=== PATIENT | male | born 1955 | race Caucasian/White ===

== ENCOUNTER → 2016-06-30 | Outpatient (CLI) | payer OTHER ==
[2016-07-03 00:07] LABS: PSA TOTAL 3.4 ng/mL (0.0-4.0)
== END ==
LOC: M SMT 11:10
PROVIDERS: ATTEND Urology
DX: N40.0 Benign prostatic hyperplasia without lower urinary tract symptoms (principal)

== ENCOUNTER → 2016-09-18 | Outpatient (CLI) | payer OTHER ==
[2016-09-18 18:04] LABS: ALBUMIN 4.2 GM/DL (3.2-5.2); ALKALINE PHOSPHATASE 40 U/L (45-117); ALT/SGPT 50 U/L (12-78); ANION GAP 5 MEQ/L (8-16); AST/SGOT 29 U/L (15-37); BILIRUBIN,TOTAL 1.9 MG/DL (0.2-1.0); BLOOD UREA NITROGEN 14 MG/DL (7-18); CALCIUM LEVEL 9.5 MG/DL (8.8-10.2); CARBON DIOXIDE LEVEL 30 MEQ/L (21-32); CHLORIDE LEVEL 105 MEQ/L (98-107); CHOLESTEROL LEVEL 157 MG/DL (<200); CREATININE FOR GFR 0.93 MG/DL (0.70-1.30); GLOMERULAR FILTRATION RATE > 60.0 (>49); GLUCOSE, FASTING 88 MG/DL (80-110); POTASSIUM SERUM 4.6 MEQ/L (3.5-5.1); SODIUM LEVEL 140 MEQ/L (136-145); TOTAL PROTEIN 7.2 GM/DL (6.4-8.2); TRIGLYCERIDES LEVEL 112 MG/DL (<150)
== END ==
LOC: M SMT 10:21
PROVIDERS: ATTEND Emergency Medicine
DX: I10 Essential (primary) hypertension (principal); E78.2 Mixed hyperlipidemia

== ENCOUNTER → 2017-05-05 | Outpatient (CLI) | payer OTHER ==
[2017-05-06 14:13] LABS: PSA % FREE 14.2 % (.); PSA FREE 1.22 ng/mL; PSA TOTAL 8.6 ng/mL (0.0-4.0)
== END ==
LOC: M SMT 10:33
DX: N40.0 Benign prostatic hyperplasia without lower urinary tract symptoms (principal)
CPT/HCPCS: 84154

== ENCOUNTER → 2017-05-11 | Outpatient (REF) | payer OTHER ==
[2017-05-11 19:22] LABS: APPEARANCE, URINE CLEAR (CLEAR); BACTERIA, URINE AUTO NEGATIVE (NEGATIVE); BILIRUBIN, URINE AUTO NEGATIVE (NEGATIVE); BLOOD, URINE BLOOD 2+ (NEGATIVE); COLOR, URINE STRAW (YELLOW); GLUCOSE, URINE (UA) AUTO NEGATIVE (NEGATIVE); KETONE, URINE AUTO NEGATIVE (NEGATIVE); LEUKOCYTE ESTERASE, URINE AUTO NEGATIVE (NEGATIVE); MUCUS, URINE SMALL (NEGATIVE); NITRITE, URINE AUTO NEGATIVE (NEGATIVE); PROTEIN, URINE AUTO NEGATIVE (NEGATIVE); RBC, URINE AUTO 3 /HPF (0-3); SPECIFIC GRAVITY URINE AUTO 1.003 (1.002-1.035); SQUAMOUS EPITHELIAL CELL UR AU 0 /HPF (0-6); UROBILINOGEN, URINE AUTO 0.2 mg/dL (0.0-2.0); WBC, URINE AUTO 0 /HPF (0-3)
== END ==
LOC: M SMT 17:38
DX: R31.0 Gross hematuria (principal); L97.423 Non-pressure chronic ulcer of left heel and midfoot with necrosis of muscle; L97.822 Non-pressure chronic ulcer of other part of left lower leg with fat layer exposed

== ENCOUNTER → 2017-05-18 | Outpatient (CLI) | payer OTHER ==
[2017-05-18 13:19] LABS: HEMATOCRIT 47.7 % (42.0-52.0); HEMOGLOBIN 15.6 g/dl (14.0-18.0); MEAN CORPUSCULAR HEMOGLOBIN 30.5 pg (27.0-33.0); MEAN CORPUSCULAR HGB CONC 32.7 g/dl (32.0-36.5); MEAN CORPUSCULAR VOLUME 93.2 fl (80.0-96.0); PLATELET COUNT, AUTOMATED 195 10^3/uL (150-450); RED BLOOD COUNT 5.12 10^6/uL (4.30-6.10); RED CELL DISTRIBUTION WIDTH 13.2 % (11.5-14.5); WHITE BLOOD COUNT 7.8 10^3/uL (4.0-10.0)
[2017-05-18 13:31] LABS: ANION GAP 6 MEQ/L (8-16); BLOOD UREA NITROGEN 15 MG/DL (7-18); CALCIUM LEVEL 9.4 MG/DL (8.8-10.2); CARBON DIOXIDE LEVEL 31 MEQ/L (21-32); CHLORIDE LEVEL 104 MEQ/L (98-107); CREATININE FOR GFR 0.92 MG/DL (0.70-1.30); GLOMERULAR FILTRATION RATE > 60.0 (>49); GLUCOSE, FASTING 90 MG/DL (70-100); POTASSIUM SERUM 4.3 MEQ/L (3.5-5.1); SODIUM LEVEL 141 MEQ/L (136-145)
[2017-05-18 13:35] LABS: PARTIAL THROMBOPLASTIN TIME 27.6 SECONDS (26.8-37.9); PROTHROMBIN TIME 13.3 SECONDS (12.4-14.5)
== END ==
LOC: M SMT 08:15
DX: Z01.818 Encounter for other preprocedural examination (principal); N40.1 Benign prostatic hyperplasia with lower urinary tract symptoms
CPT/HCPCS: 80048

== ENCOUNTER 2017-05-25 06:02 | Day surgery (SDC) | payer OTHER ==
[2017-05-25] MEDS ORDERED: LIDOCAINE 1% MDV 20ML VIAL SQ (06:15)
[2017-05-25] MEDS: LR 1,000 ML IV (06:55)
[2017-05-25] MEDS ORDERED: MIDAZOLAM INJ 2 MG/2 ML VIAL (J2250) As Ordered (07:56)
[2017-05-25] MEDS ORDERED: fentaNYL 250 MCG/5 ML INJECTION (J3010) As Ordered (07:56)
[2017-05-25] MEDS ORDERED: PROPOFOL 200 MG/20 ML VIAL As Ordered ×2 (07:57→09:39)
[2017-05-25] MEDS ORDERED: LIDOCAINE 2% INJ 100 MG/5 ML SDV (FOR ANES.) As Ordered (07:58)
[2017-05-25] MEDS ORDERED: ONDANSETRON 4MG/2ML VIAL (J2405) As Ordered (08:16)
[2017-05-25] MEDS ORDERED: dexameTHASONE 4 MG/ML 1ML VIAL (J1100) As Ordered (08:16)
[2017-05-25] MEDS ORDERED: ePHEDrine INJ 50 MG/ML VIAL As Ordered (08:21)
[2017-05-25] MEDS ORDERED: FUROSEMIDE 100 MG/10 ML VIAL (J1940) As Ordered (09:16)
[2017-05-25] MEDS ORDERED: ACETAMINOPHEN TAB 650MG DOSE (2X325MG) PO (10:15)
[2017-05-25] MEDS ORDERED: MORPHINE 10 MG/ML 1ML VIAL (J2270) IV (10:30)
[2017-05-25] MEDS ORDERED: ONDANSETRON 4MG/2ML VIAL (J2405) IV (10:30)
[2017-05-25] MEDS ORDERED: METOCLOPRAMIDE INJ 10MG/2ML VIAL (J2765) IV (10:30)
[2017-05-25] MEDS ORDERED: LR 1,000 ML IV (10:30)
[2017-05-25] MEDS ORDERED: fentaNYL 100 MCG/2 ML INJECTION (J3010) IV (10:30)
[2017-05-25] MEDS: PERCOCET 5MG/325MG TAB PO (12:32)
== END 2017-05-25 13:15 | disposition home or self-care (01) ==
LOC: M SDC 06:02
DX: N40.1 Benign prostatic hyperplasia with lower urinary tract symptoms (principal); R97.20 Elevated prostate specific antigen [PSA]; I10 Essential (primary) hypertension; E78.2 Mixed hyperlipidemia; Z87.891 Personal history of nicotine dependence; Z79.899 Other long term (current) drug therapy; Z79.82 Long term (current) use of aspirin
CPT/HCPCS: 52601

== ENCOUNTER → 2017-08-12 | Outpatient (CLI) | payer OTHER ==
[2017-08-12 14:09] LABS: ALBUMIN 4.5 GM/DL (3.2-5.2); ALBUMIN/GLOBULIN RATIO 1.73 (1.00-1.93); ALKALINE PHOSPHATASE 42 U/L (45-117); ALT/SGPT 44 U/L (12-78); ANION GAP 4 MEQ/L (8-16); AST/SGOT 36 U/L (7-37); BILIRUBIN,TOTAL 2.1 MG/DL (0.2-1.0); BLOOD UREA NITROGEN 11 MG/DL (7-18); CALCIUM LEVEL 8.9 MG/DL (8.8-10.2); CARBON DIOXIDE LEVEL 31 MEQ/L (21-32); CHLORIDE LEVEL 108 MEQ/L (98-107); CHOLESTEROL LEVEL 147 MG/DL (<200); CHOLESTEROL RISK RATIO 2.296 (<5); CREATININE FOR GFR 0.94 MG/DL (0.70-1.30); GLOMERULAR FILTRATION RATE > 60.0 (>49); GLUCOSE, FASTING 95 MG/DL (70-100); HDL CHOLESTEROL 64 MG/DL (>40); LDL CHOLESTEROL 67.8 MG/DL (<100); NON-HDL-C 83 MG/DL; POTASSIUM SERUM 4.6 MEQ/L (3.5-5.1); SODIUM LEVEL 143 MEQ/L (136-145); TOTAL PROTEIN 7.1 GM/DL (6.4-8.2); TRIGLYCERIDES LEVEL 76 MG/DL (<150)
== END ==
LOC: M SMT 10:41
DX: I10 Essential (primary) hypertension (principal); E78.2 Mixed hyperlipidemia

== ENCOUNTER → 2017-12-16 | Outpatient (CLI) | payer OTHER ==
[2017-12-18 00:06] LABS: PSA % FREE 20.2 % (.); PSA FREE 0.95 ng/mL; PSA TOTAL 4.7 ng/mL (0.0-4.0)
== END ==
LOC: M SMT 09:44
DX: R97.20 Elevated prostate specific antigen [PSA] (principal)

== ENCOUNTER → 2018-05-06 | Outpatient (REF) | payer OTHER ==
[~2018-05-06] MED LIST: ASPI81TA85 PO; CENTTAB PO; EZET10TA PO; FLOM0.4C39 PO; SIMV40TA2 PO
[2018-05-06 13:51] LABS: HEMOGLOBIN A1c 5.8 %
== END ==
LOC: M SFHCPLAZ 10:01
PROVIDERS: ATTEND Family Medicine
DX: R73.01 Impaired fasting glucose (principal)
CPT/HCPCS: 36415; 83036; 90471; 90732; 93005; G0463

== ENCOUNTER → 2018-12-22 | Outpatient (CLI) | payer OTHER ==
[~2018-12-22] MED LIST changes: -EZET10TA PO; +EZET10TA21 PO
[2018-12-23 14:07] LABS: PSA % FREE 18.2 % (.); PSA FREE 0.91 ng/mL
== END ==
LOC: M SMT 09:03
PROVIDERS: ATTEND Urology
DX: R97.20 Elevated prostate specific antigen [PSA] (principal)

== ENCOUNTER → 2019-05-13 | Outpatient (REF) | payer OTHER ==
[~2019-05-13] MED LIST changes: -SIMV40TA2 PO; +SIMV40TA20 PO
[2019-05-13 11:23] LABS: ALBUMIN 4.5 GM/DL (3.2-5.2); ALT/SGPT 52 U/L (12-78); BLOOD UREA NITROGEN 15 MG/DL (7-18); CALCIUM LEVEL 9.3 MG/DL (8.8-10.2); CARBON DIOXIDE LEVEL 27 MEQ/L (21-32); CHLORIDE LEVEL 108 MEQ/L (98-107); CHOLESTEROL LEVEL 140 MG/DL (<200); CHOLESTEROL RISK RATIO 2.153 (<5); CREATININE FOR GFR 0.87 MG/DL (0.70-1.30); GLOMERULAR FILTRATION RATE > 60.0 (>49); GLUCOSE, FASTING 96 MG/DL (70-100); HDL CHOLESTEROL 65 MG/DL (>40); LDL CHOLESTEROL 64 MG/DL (<100); NON-HDL-C 75 MG/DL; POTASSIUM SERUM 4.5 MEQ/L (3.5-5.1); SODIUM LEVEL 140 MEQ/L (136-145); TOTAL PROTEIN 7.3 GM/DL (6.4-8.2); TRIGLYCERIDES LEVEL 57 MG/DL (<150)
== END ==
LOC: M SFHCPLAZ 09:19
PROVIDERS: ATTEND Family Medicine
DX: I10 Essential (primary) hypertension (principal); E78.2 Mixed hyperlipidemia; R73.03 Prediabetes
CPT/HCPCS: 36415; 80053; 80061; 83036; G0463

== ENCOUNTER → 2019-05-25 | Outpatient (REF) | payer OTHER | LOC: M SFHCWAGY 13:00 | PROVIDERS: ATTEND Family Medicine | DX: D49.2 Neoplasm of unspecified behavior of bone, soft tissue, and skin (principal) ==

== ENCOUNTER → 2019-11-16 | Outpatient (CLI) | payer OTHER ==
[~2019-11-16] MED LIST changes: -ASPI81TA85 PO; +ASPI81TA86 PO
[2019-11-16 15:58] LABS: ALBUMIN 4.4 GM/DL (3.2-5.2); ALT/SGPT 47 U/L (12-78); BILIRUBIN,TOTAL 1.9 MG/DL (0.2-1.0); BLOOD UREA NITROGEN 11 MG/DL (7-18); CALCIUM LEVEL 9.9 MG/DL (8.8-10.2); CARBON DIOXIDE LEVEL 30 MEQ/L (21-32); CHLORIDE LEVEL 108 MEQ/L (98-107); CREATININE FOR GFR 0.84 MG/DL (0.70-1.30); GLOMERULAR FILTRATION RATE > 60.0 (>49); GLUCOSE, FASTING 94 MG/DL (70-100); POTASSIUM SERUM 4.7 MEQ/L (3.5-5.1); SODIUM LEVEL 142 MEQ/L (136-145); THYROID STIMULATING HORMONE 0.615 uIU/ML (0.358-3.740); TOTAL PROTEIN 7.3 GM/DL (6.4-8.2)
[2019-11-16 16:00] LABS: VITAMIN B12 LEVEL 630 PG/ML (247-911)
== END ==
LOC: M PLALAB 13:49
PROVIDERS: ATTEND Family Medicine
DX: I10 Essential (primary) hypertension (principal); R41.3 Other amnesia; N40.1 Benign prostatic hyperplasia with lower urinary tract symptoms

== ENCOUNTER → 2019-11-24 | Outpatient (CLI) | payer OTHER ==
[~2019-11-24] MED LIST changes: +PROHANCE 279.3MG/ML 15ML VIAL As Ordered ONE; +PROHANCE 279.3MG/ML 5ML VIAL As Ordered ONE
--- NOTE | 2019-11-24 14:56 | REPVR ---
PROCEDURE INFORMATION: Exam: MR Head Without and With Contrast Exam date and time: 11/24/2019 2:36 PM Age: 64 years old Clinical indication: Altered mental status/memory loss; Age related cognitive decline; Additional info: Memory decline fm h/o brain tumor TECHNIQUE: Imaging protocol: MR of the head without and with intravenous contrast. Contrast material: PROHANCE; Contrast volume: 18 ml; Contrast route: INTRAVENOUS (IV); COMPARISON: No relevant prior studies available. FINDINGS: Brain: There is no abnormal diffusion weighted signal intensity to suggest an acute ischemic event. There is mild atrophy and normal chronic white matter microangiopathic changes. Ventricles: There is a normal-variant cavum septi pellucidi and cavum vergae. There is no dilatation of the ventricles with attention to the temporal horns on coronal images. Bones/joints: Unremarkable. Sinuses: Normal as visualized. No acute sinusitis. Mastoid air cells: Normal as visualized. No mastoid effusion. Orbits: Unremarkable. Soft tissues: Unremarkable. Other findings: There are no regions of abnormal enhancement. IMPRESSION: 1. There are no regions of abnormal enhancement. 2. There is no dilatation of the ventricles with attention to the temporal horns on coronal images. Electronically signed by: Bhupinder Vincent On 11/24/2019 14:56:44 PM
== END ==
LOC: M RAD 13:15
PROVIDERS: ATTEND Family Medicine
DX: R41.81 Age-related cognitive decline (principal); Z80.8 Family history of malignant neoplasm of other organs or systems
CPT/HCPCS: 70553; A9576

== ENCOUNTER → 2020-01-30 | Outpatient (REF) | payer OTHER ==
[~2020-01-30] MED LIST changes: -PROHANCE 279.3MG/ML 15ML VIAL As Ordered ONE; -PROHANCE 279.3MG/ML 5ML VIAL As Ordered ONE
== END ==
LOC: M LABSMT 12:22
PROVIDERS: ATTEND Nurse Practitioner Women's Health
DX: R97.20 Elevated prostate specific antigen [PSA] (principal)

== ENCOUNTER → 2020-06-21 | Outpatient (REF) | payer OTHER ==
[2020-06-21 14:07] LABS: BLOOD UREA NITROGEN 13 MG/DL (7-18); CALCIUM LEVEL 9.4 MG/DL (8.8-10.2); CARBON DIOXIDE LEVEL 32 MEQ/L (21-32); CHLORIDE LEVEL 105 MEQ/L (98-107); CHOLESTEROL LEVEL 139 MG/DL (<200); CHOLESTEROL RISK RATIO 2.396 (<5); CREATININE FOR GFR 0.78 MG/DL (0.70-1.30); GLOMERULAR FILTRATION RATE > 60.0 (>49); GLUCOSE, FASTING 97 MG/DL (70-100); HDL CHOLESTEROL 58 MG/DL (>40); LDL CHOLESTEROL 59 MG/DL (<100); NON-HDL-C 81 MG/DL; POTASSIUM SERUM 4.3 MEQ/L (3.5-5.1); SODIUM LEVEL 139 MEQ/L (136-145); TRIGLYCERIDES LEVEL 110 MG/DL (<150)
[2020-06-21 16:07] LABS: HEMOGLOBIN A1c 5.7 %
== END ==
LOC: M SFHCPLAZ 09:00
PROVIDERS: ATTEND Family Medicine
DX: R73.03 Prediabetes (principal); E78.2 Mixed hyperlipidemia; I10 Essential (primary) hypertension
CPT/HCPCS: 36415; 80048; 80061; 83036; G0463

== ENCOUNTER → 2020-08-01 | Outpatient (REF) | payer OTHER ==
[2020-08-02 19:07] LABS: PSA % FREE 17.7 % (.); PSA FREE 1.08 ng/mL; PSA TOTAL 6.1 ng/mL (0.0-4.0)
== END ==
LOC: M PLALAB 12:45
PROVIDERS: ATTEND Urology
DX: R97.20 Elevated prostate specific antigen [PSA] (principal)

== ENCOUNTER → 2020-10-18 | Outpatient (CLI) | payer MEDICARE, OTHER ==
[2020-10-18 12:38] LABS: FOLATE 23.4 NG/ML; FREE T4 0.79 NG/DL (0.76-1.46); FREE THYROXINE INDEX 2.9 % (1.4-3.8); RHEUMATOID FACTOR QUANT < 10.0 IU/ML (<15.0); T UPTAKE 34 % (33-40); THYROXINE (T4) 8.5 UG/DL (4.5-12.0); TOTAL PROTEIN 6.8 GM/DL (6.4-8.2); VITAMIN B12 LEVEL 552 PG/ML
[2020-10-19 10:52] LABS: ALBUMIN 4.35 GM/DL (3.29-5.55); ALPHA-1-GLOBULIN % 4.4 % (2.9-4.9); ALPHA-2-GLOBULINS 0.69 GM/DL (0.42-0.99); ALPHA-2-GLOBULINS % 10.2 % (7.1-11.8); BETA-1-GLOBULINS 0.45 GM/DL (0.28-0.60); BETA-1-GLOBULINS % 6.6 % (4.7-7.2); BETA-2-GLOBULINS 0.33 GM/DL (0.19-0.55); BETA-2-GLOBULINS % 4.9 % (3.2-6.5); GAMMA GLOBULIN % 9.9 % (11.1-18.8); GAMMA GLOBULINS 0.67 GM/DL (0.65-1.58)
== END ==
LOC: M PLALAB 08:20
PROVIDERS: ATTEND Psychiatry & Neurology Neurology
DX: R20.0 Anesthesia of skin (principal); R20.2 Paresthesia of skin; R41.3 Other amnesia; M54.5 Low back pain

== ENCOUNTER → 2020-12-24 | Outpatient (CLI) | payer MEDICARE, OTHER ==
[2020-12-24 14:25] LABS: BLOOD UREA NITROGEN 11 MG/DL (7-18); CALCIUM LEVEL 9.7 MG/DL (8.8-10.2); CARBON DIOXIDE LEVEL 26 MEQ/L (21-32); CHLORIDE LEVEL 107 MEQ/L (98-107); CREATININE FOR GFR 0.88 MG/DL (0.70-1.30); GLOMERULAR FILTRATION RATE > 60.0 (>49); GLUCOSE, FASTING 90 MG/DL (70-100); POTASSIUM SERUM 4.2 MEQ/L (3.5-5.1); SODIUM LEVEL 139 MEQ/L (136-145)
[2020-12-24 14:34] LABS: HEMOGLOBIN A1c 5.3 %
== END ==
LOC: M PLALAB 08:47
PROVIDERS: ATTEND Family Medicine
DX: R73.03 Prediabetes (principal); I10 Essential (primary) hypertension

== ENCOUNTER → 2021-01-21 | Outpatient (CLI) | payer MEDICARE, OTHER ==
[~2021-01-21] MED LIST changes: +ARIC1TAB2 PO; +DONE10TA90; +LISI-898
== END ==
LOC: M LABSMTC 10:08
PROVIDERS: ATTEND Anesthesiology
DX: Z01.812 Encounter for preprocedural laboratory examination (principal); Z20.822 Contact with and (suspected) exposure to COVID-19

== ENCOUNTER 2021-01-25 10:49 | Day surgery (SDC) | payer MEDICARE, OTHER ==
[~2021-01-25] VITALS: Ht 182.9 cm; Wt 94.7 kg
[~2021-01-25 10:49] MED LIST changes: +LIDOCAINE 2% 100MG/5ML SDV (FOR ANES.) As Ordered ONE; +NS 1,000 ML IV ONE; +propofoL 200 MG/20 ML VIAL As Ordered ONE
--- NOTE | 2021-01-25 12:53 | ROOR ---
Patient Name: Bruno Gregg Procedure Date: 01/25/2021 12:11 PM Date of : 1955 Age: 65 Room: [facility] Gender: Male Note Status: Finalized Procedure: Colonoscopy Indications: High risk colon cancer surveillance: Personal history of colonic polyps Providers: Donn Foster MD Referring MD: Shila Nye MD Requesting Provider: Medicines: Monitored Anesthesia Care Complications: No immediate complications. Procedure: Pre-Anesthesia Assessment: - Prior to the procedure, a History and Physical was performed, and patient medications and allergies were reviewed. The patient is competent. The risks and benefits of the procedure and the sedation options and risks were discussed with the patient. All questions were answered and informed consent was obtained. Patient identification and proposed procedure were verified by the physician, the nurse and the information specialist in the endoscopy suite. Mental Status Examination: alert and oriented. Airway Examination: normal oropharyngeal airway and neck mobility. Respiratory Examination: clear to auscultation. CV Examination: normal. Prophylactic Antibiotics: The patient does not require prophylactic antibiotics. Prior Anticoagulants: The patient has taken no previous anticoagulant or antiplatelet agents except for aspirin. ASA Grade Assessment: III - A patient with severe systemic disease. After reviewing the risks and benefits, the patient was deemed in satisfactory condition to undergo the procedure. The anesthesia plan was to use monitored anesthesia care (MAC). Immediately prior to administration of medications, the patient was re-assessed for adequacy to receive sedatives. The heart rate, respiratory rate, oxygen saturations, blood pressure, adequacy of pulmonary ventilation, and response to care were monitored throughout the procedure. The physical status of the patient was re-assessed after the procedure. The Colonoscope was introduced through the anus and advanced to the cecum, identified by appendiceal orifice and ileocecal valve. The colonoscopy was performed without difficulty. The patient tolerated the procedure well. The quality of the bowel preparation was good. Findings: The perianal and digital rectal examinations were normal. Multiple small-mouthed diverticula were found in the sigmoid colon, descending colon and transverse colon. A 5 mm polyp was found in the sigmoid colon. The polyp was sessile. The polyp was removed with a cold snare. Resection and retrieval were complete. Estimated blood loss was minimal. The retroflexed view of the distal rectum and anal verge was normal and showed no anal or rectal abnormalities. Impression: - Diverticulosis in the sigmoid colon, in the descending colon and in the transverse colon. - One 5 mm polyp in the sigmoid colon, removed with a cold snare. Resected and retrieved. - The distal rectum and anal verge are normal on retroflexion view. Recommendation: - Discharge patient to home (ambulatory). - High fiber diet. - Repeat colonoscopy in 5 years for surveillance. Procedure Code(s): --- Professional --- 78440, Colonoscopy, flexible; with removal of tumor(s), polyp(s), or other lesion(s) by snare technique Diagnosis Code(s): --- Professional --- Z86.010, Personal history of colonic polyps K63.5, Polyp of colon K57.30, Diverticulosis of large intestine without perforation or abscess without bleeding CPT copyright 2019 [employer]. All rights reserved. The codes documented in this report are preliminary and upon supervisor phosphatic fertilizer review may be revised to meet current compliance requirements. Donn Foster MD Donn Foster MD 01/25/2021 12:53:06 PM Electronically signed by Donn Foster MD Number of Addenda: 0 Note Initiated On: 01/25/2021 12:11 PM Estimated Blood Loss: Estimated blood loss was minimal.
[2021-01-25 13:13] VITALS: BP 142/63
[2021-01-26] MEDS ORDERED: DESFLURANE 240 ML INHALANT As Ordered ONE (05:46)
== END 2021-01-25 13:16 | disposition home or self-care (01) ==
LOC: M OPP 10:49
PROVIDERS: ATTEND Surgery
DX: K63.5 Polyp of colon (principal); K57.30 Diverticulosis of large intestine without perforation or abscess without bleeding; Z86.010 Personal history of colon polyps; I10 Essential (primary) hypertension; I44.7 Left bundle-branch block, unspecified; E78.00 Pure hypercholesterolemia, unspecified; N40.0 Benign prostatic hyperplasia without lower urinary tract symptoms; Z79.899 Other long term (current) drug therapy

== ENCOUNTER → 2021-01-31 | Outpatient (CLI) | payer MEDICARE, OTHER ==
[~2021-01-31] MED LIST changes: -LIDOCAINE 2% 100MG/5ML SDV (FOR ANES.) As Ordered ONE; -NS 1,000 ML IV ONE; -propofoL 200 MG/20 ML VIAL As Ordered ONE
[2021-02-02 00:07] LABS: PSA FREE 0.93 ng/mL; PSA TOTAL 6.2 ng/mL (0.0-4.0)
== END ==
LOC: M PLALAB 09:36
PROVIDERS: ATTEND Urology
DX: R97.20 Elevated prostate specific antigen [PSA] (principal)

== ENCOUNTER → 2021-06-27 | Outpatient (CLI) | payer MEDICARE, OTHER ==
[~2021-06-27] MED LIST changes: -LISI-898; +LISI5TAB11
[2021-06-27 12:10] LABS: ALBUMIN 4.1 GM/DL (3.2-5.2); ALT/SGPT 66 U/L (12-78); BILIRUBIN,TOTAL 2.1 MG/DL (0.2-1.0); BLOOD UREA NITROGEN 22 MG/DL (7-18); CALCIUM LEVEL 9.8 MG/DL (8.8-10.2); CARBON DIOXIDE LEVEL 31 MEQ/L (21-32); CHLORIDE LEVEL 107 MEQ/L (98-107); CHOLESTEROL LEVEL 144 MG/DL (<200); CREATININE FOR GFR 0.97 MG/DL (0.70-1.30); GLOMERULAR FILTRATION RATE > 60.0 (>49); GLUCOSE, FASTING 88 MG/DL (70-100); HDL CHOLESTEROL 60 MG/DL (>40); LDL CHOLESTEROL 68 MG/DL (<100); NON-HDL-C 84 MG/DL; POTASSIUM SERUM 4.6 MEQ/L (3.5-5.1); SODIUM LEVEL 142 MEQ/L (136-145); TOTAL PROTEIN 7.3 GM/DL (6.4-8.2); TRIGLYCERIDES LEVEL 79 MG/DL (<150)
== END ==
LOC: M PLALAB 08:31
PROVIDERS: ATTEND Family Medicine
DX: E78.2 Mixed hyperlipidemia (principal); I10 Essential (primary) hypertension

== ENCOUNTER → 2021-08-09 | Outpatient (CLI) | payer MEDICARE, OTHER | LOC: M PLALAB 08:55 | PROVIDERS: ATTEND Urology | DX: R97.20 Elevated prostate specific antigen [PSA] (principal) ==

== ENCOUNTER → 2021-12-04 | Outpatient (CLI) | payer MEDICARE, OTHER ==
[2021-12-04 15:05] LABS: BLOOD UREA NITROGEN 15 MG/DL (7-18); CALCIUM LEVEL 9.8 MG/DL (8.8-10.2); CARBON DIOXIDE LEVEL 29 MEQ/L (21-32); CHLORIDE LEVEL 105 MEQ/L (98-107); CREATININE FOR GFR 0.85 MG/DL (0.70-1.30); GLOMERULAR FILTRATION RATE > 60.0 (>49); GLUCOSE, FASTING 93 MG/DL (70-100); POTASSIUM SERUM 4.9 MEQ/L (3.5-5.1); SODIUM LEVEL 138 MEQ/L (136-145)
== END ==
LOC: M PLALAB 11:12
PROVIDERS: ATTEND Urology
DX: R31.0 Gross hematuria (principal)

== ENCOUNTER → 2021-12-16 | Outpatient (CLI) | payer MEDICARE, OTHER ==
[~2021-12-16] MED LIST changes: +ISOVUE-370 76% 100ML VIAL As Ordered ONE
== END ==
LOC: M RAD 14:12
PROVIDERS: ATTEND Urology
DX: R31.0 Gross hematuria (principal)
CPT/HCPCS: 74178; Q9967

== ENCOUNTER → 2022-02-24 | Outpatient (CLI) | payer MEDICARE, OTHER ==
[~2022-02-24] MED LIST changes: -ISOVUE-370 76% 100ML VIAL As Ordered ONE
[2022-02-25 17:08] LABS: PSA % FREE 15.7 % (.); PSA FREE 1.07 ng/mL; PSA TOTAL 6.8 ng/mL (0.0-4.0)
== END ==
LOC: M PLALAB 09:16
PROVIDERS: ATTEND Urology
DX: R97.20 Elevated prostate specific antigen [PSA] (principal)

== ENCOUNTER → 2022-04-10 | Outpatient (CLI) | payer MEDICARE, OTHER ==
[2022-04-10 11:32] LABS: HEMATOCRIT 45.7 % (42.0-52.0); HEMOGLOBIN 14.5 g/dl (13.5-17.5); MEAN CORPUSCULAR HEMOGLOBIN 30.7 pg (27.0-33.0); MEAN CORPUSCULAR HGB CONC 31.7 g/dl (32.0-36.5); MEAN CORPUSCULAR VOLUME 96.6 fl (80.0-96.0); PLATELET COUNT, AUTOMATED 208 10^3/uL (150-450); RED BLOOD COUNT 4.73 10^6/uL (4.30-6.10); WHITE BLOOD COUNT 5.5 10^3/uL (4.0-10.0)
[2022-04-10 11:54] LABS: CREATININE, URINE 191.3 MG/DL
[2022-04-10 11:55] LABS: MAU/CREAT RATIO 11.5 MCG/MG (0.0-30.0)
[2022-04-10 11:58] LABS: ALBUMIN 4.1 G/DL (3.2-5.2); ALKALINE PHOSPHATASE 45 U/L (46-116); ALT/SGPT 44 U/L (7.0-40); AST/SGOT 38 U/L (<34); BILIRUBIN,TOTAL 1.6 MG/DL (0.3-1.2); BLOOD UREA NITROGEN 22 MG/DL (9-23); CALCIUM LEVEL 9.6 MG/DL (8.3-10.6); CARBON DIOXIDE LEVEL 30 MMOL/L (20-31); CHLORIDE LEVEL 106 MMOL/L (98-107); CHOLESTEROL LEVEL 124 MG/DL (<200); CHOLESTEROL RISK RATIO 2.51 (<5); GLOMERULAR FILTRATION RATE > 60.0 (>49); GLUCOSE, FASTING 72 MG/DL (74-106); HDL CHOLESTEROL 49.3 MG/DL (>40); LDL CHOLESTEROL 58.1 MG/DL (<100); NON-HDL-C 75 MG/DL; POTASSIUM SERUM 4.7 MMOL/L (3.5-5.1); SODIUM LEVEL 140 MMOL/L (136-145); TOTAL PROTEIN 6.7 G/DL (5.7-8.2); TRIGLYCERIDES LEVEL 83 MG/DL (<150)
[2022-04-10 11:59] LABS: FREE T4 1.02 NG/DL (0.89-1.76); THYROID STIMULATING HORMONE 3.083 uIU/ML (0.55-4.78); TOTAL 25(OH) VITAMIN D 26.4 NG/ML (20.0-100.0); VITAMIN B12 LEVEL 543 PG/ML (211-911)
[2022-04-10 12:06] LABS: HEMOGLOBIN A1c 5.4 % (4.0-6.0)
== END ==
LOC: M PLALAB 09:11
PROVIDERS: ATTEND Internal Medicine Hematology
DX: E78.2 Mixed hyperlipidemia (principal); M79.672 Pain in left foot

== ENCOUNTER → 2022-09-01 | Outpatient (CLI) | payer MEDICARE, OTHER ==
[2022-09-02 23:09] LABS: PSA % FREE 16.7 % (.); PSA FREE 1.15 ng/mL; PSA TOTAL 6.9 ng/mL (0.0-4.0)
== END ==
LOC: M PLALAB 08:56
PROVIDERS: ATTEND Urology
DX: R97.20 Elevated prostate specific antigen [PSA] (principal)

== ENCOUNTER → 2022-11-03 | Outpatient (CLI) | payer MEDICARE, OTHER ==
[2022-11-03 11:13] LABS: HEMATOCRIT 46.9 % (42.0-52.0); HEMOGLOBIN 15.2 g/dl (13.5-17.5); MEAN CORPUSCULAR HEMOGLOBIN 30.5 pg (27.0-33.0); MEAN CORPUSCULAR HGB CONC 32.4 g/dl (32.0-36.5); MEAN CORPUSCULAR VOLUME 94.2 fl (80.0-96.0); PLATELET COUNT, AUTOMATED 175 10^3/uL (150-450); RED BLOOD COUNT 4.98 10^6/uL (4.30-6.10)
[2022-11-03 11:34] LABS: CREATININE, URINE 180.7 MG/DL
[2022-11-03 11:35] LABS: MAU/CREAT RATIO 9.9 MCG/MG (0.0-30.0)
[2022-11-03 11:36] LABS: C REACTIVE PROTEIN QUANTITATIV < 0.40 MG/DL (<1.0)
[2022-11-03 11:41] LABS: ALBUMIN 4.2 G/DL (3.2-5.2); ALKALINE PHOSPHATASE 40 U/L (46-116); ALT/SGPT 54 U/L (7.0-40); AST/SGOT 37 U/L (<34); BILIRUBIN,TOTAL 1.6 MG/DL (0.3-1.2); BLOOD UREA NITROGEN 14 MG/DL (9-23); CALCIUM LEVEL 9.8 MG/DL (8.3-10.6); CARBON DIOXIDE LEVEL 29 MMOL/L (20-31); CHLORIDE LEVEL 106 MMOL/L (98-107); CHOLESTEROL LEVEL 131 MG/DL (<200); FREE T4 0.91 NG/DL (0.89-1.76); GLOMERULAR FILTRATION RATE > 60.0 (>49); GLUCOSE, FASTING 93 MG/DL (74-106); HDL CHOLESTEROL 52.3 MG/DL (>40); LDL CHOLESTEROL 57.5 MG/DL (<100); NON-HDL-C 78.7 MG/DL; POTASSIUM SERUM 4.6 MMOL/L (3.5-5.1); SODIUM LEVEL 141 MMOL/L (136-145); THYROID STIMULATING HORMONE 4.147 uIU/ML (0.55-4.78); TOTAL 25(OH) VITAMIN D 29.7 NG/ML (20.0-100.0); TRIGLYCERIDES LEVEL 106 MG/DL (<150)
[2022-11-03 12:05] LABS: VITAMIN B12 LEVEL 532 PG/ML (211-911)
== END ==
LOC: M PLALAB 08:18
PROVIDERS: ATTEND Internal Medicine Hematology
DX: R79.89 Other specified abnormal findings of blood chemistry (principal); Z79.899 Other long term (current) drug therapy

== ENCOUNTER → 2023-02-18 | Outpatient (CLI) | payer MEDICARE, OTHER ==
[2023-02-19 23:10] LABS: PSA % FREE 18.9 % (.); PSA FREE 1.38 ng/mL; PSA TOTAL 7.3 ng/mL (0.0-4.0)
== END ==
LOC: M PLALAB 09:43
PROVIDERS: ATTEND Urology
DX: R97.20 Elevated prostate specific antigen [PSA] (principal)

== ENCOUNTER → 2023-05-22 | Outpatient (CLI) | payer MEDICARE, OTHER ==
[2023-05-22 14:20] LABS: MAU/CREAT RATIO 4.9 MCG/MG (0.0-30.0)
[2023-05-22 14:33] LABS: HEMATOCRIT 45.5 % (42.0-52.0); HEMOGLOBIN 14.7 g/dl (13.5-17.5); MEAN CORPUSCULAR HEMOGLOBIN 30.8 pg (27.0-33.0); MEAN CORPUSCULAR HGB CONC 32.3 g/dl (32.0-36.5); MEAN CORPUSCULAR VOLUME 95.2 fl (80.0-96.0); PLATELET COUNT, AUTOMATED 186 10^3/uL (150-450); RED BLOOD COUNT 4.78 10^6/uL (4.30-6.10); WHITE BLOOD COUNT 5.4 10^3/uL (4.0-10.0)
[2023-05-22 14:59] LABS: HEMOGLOBIN A1c 5.6 % (4.0-6.0)
[2023-05-22 15:06] LABS: C REACTIVE PROTEIN QUANTITATIV < 0.40 MG/DL (<1.0)
[2023-05-22 15:12] LABS: THYROID STIMULATING HORMONE 3.835 uIU/ML (0.55-4.78); TOTAL 25(OH) VITAMIN D 23.9 NG/ML (20.0-100.0)
[2023-05-22 15:14] LABS: VITAMIN B12 LEVEL 488 PG/ML (211-911)
[2023-05-22 15:15] LABS: FREE T4 0.89 NG/DL (0.89-1.76)
[2023-05-22 15:20] LABS: ALBUMIN 4.1 G/DL (3.2-5.2); ALKALINE PHOSPHATASE 40 U/L (46-116); ALT/SGPT 56 U/L (7.0-40); AST/SGOT 37 U/L (<34); BLOOD UREA NITROGEN 15 MG/DL (9-23); CALCIUM LEVEL 9.1 MG/DL (8.3-10.6); CARBON DIOXIDE LEVEL 28 MMOL/L (20-31); CHLORIDE LEVEL 107 MMOL/L (98-107); CHOLESTEROL LEVEL 132 MG/DL (<200); CHOLESTEROL RISK RATIO 2.82 (<5); CREATININE FOR GFR 0.85 MG/DL (0.70-1.30); GLOMERULAR FILTRATION RATE > 60.0 (>49); GLUCOSE, FASTING 94 MG/DL (74-106); HDL CHOLESTEROL 46.8 MG/DL (>40); NON-HDL-C 85.2 MG/DL; POTASSIUM SERUM 4.4 MMOL/L (3.5-5.1); SODIUM LEVEL 140 MMOL/L (136-145); TOTAL PROTEIN 6.6 G/DL (5.7-8.2); TRIGLYCERIDES LEVEL 91 MG/DL (<150)
== END ==
LOC: M PLALAB 09:36
PROVIDERS: ATTEND Internal Medicine Hematology
DX: I10 Essential (primary) hypertension (principal); E78.2 Mixed hyperlipidemia; Z79.899 Other long term (current) drug therapy

== ENCOUNTER → 2023-08-06 | Outpatient (CLI) | payer MEDICARE, OTHER | LOC: M EKG 11:45 | PROVIDERS: ATTEND Physician Assistant | DX: I49.5 Sick sinus syndrome (principal) ==

== ENCOUNTER → 2023-09-01 | Outpatient (CLI) | payer MEDICARE, OTHER ==
[2023-09-02 14:37] LABS: PSA FREE 1.4 ng/mL; PSA TOTAL 8.2 ng/mL (< OR = 4.0)
== END ==
LOC: M PLALAB 08:31
PROVIDERS: ATTEND Urology
DX: R97.20 Elevated prostate specific antigen [PSA] (principal)

== ENCOUNTER → 2023-11-19 | Outpatient (CLI) | payer MEDICARE, OTHER ==
[2023-11-19 10:03] LABS: BASO # 0.1 10^3/uL (0.0-0.2); BASO % 0.8 % (0.0-1.0); EOS # 0.1 10^3/uL (0.0-0.5); EOS % 1.3 % (0.0-3.0); HEMATOCRIT 47.4 % (42.0-52.0); HEMOGLOBIN 15.4 g/dl (13.5-17.5); LYMPH # 2.3 10^3/uL (1.5-5.0); LYMPH % 37.3 % (24.0-44.0); MEAN CORPUSCULAR HGB CONC 32.5 g/dl (32.0-36.5); MEAN CORPUSCULAR VOLUME 95.6 fl (80.0-96.0); MONO # 0.7 10^3/uL (0.0-0.8); MONO % 10.5 % (2.0-8.0); NEUTROPHILS # 3.1 10^3/uL (1.5-8.5); NEUTROPHILS % 49.9 % (36.0-66.0); PLATELET COUNT, AUTOMATED 176 10^3/uL (150-450); RED BLOOD COUNT 4.96 10^6/uL (4.30-6.10); WHITE BLOOD COUNT 6.2 10^3/uL (4.0-10.0)
[2023-11-19 10:23] LABS: CREATININE, URINE 198.6 MG/DL; MAU/CREAT RATIO 3.5 MCG/MG (0.0-30.0)
[2023-11-19 10:37] LABS: HEMOGLOBIN A1c 5.6 % (4.0-6.0)
[2023-11-19 11:19] LABS: ALBUMIN 4.3 G/DL (3.2-5.2); ALKALINE PHOSPHATASE 46 U/L (46-116); ALT/SGPT 50 U/L (7.0-40); AST/SGOT 29 U/L (<34); BILIRUBIN,TOTAL 2.1 MG/DL (0.3-1.2); BLOOD UREA NITROGEN 17 MG/DL (9-23); CALCIUM LEVEL 9.9 MG/DL (8.3-10.6); CARBON DIOXIDE LEVEL 28 MMOL/L (20-31); CHLORIDE LEVEL 107 MMOL/L (98-107); CHOLESTEROL LEVEL 154 MG/DL (<200); CHOLESTEROL RISK RATIO 3.69 (<5); CREATININE FOR GFR 0.85 MG/DL (0.70-1.30); GLOMERULAR FILTRATION RATE > 60.0 (>49); GLUCOSE, FASTING 96 MG/DL (74-106); HDL CHOLESTEROL 41.7 MG/DL (>40); LDL CHOLESTEROL 84.7 MG/DL (<100); NON-HDL-C 112.3 MG/DL; POTASSIUM SERUM 4.5 MMOL/L (3.5-5.1); SODIUM LEVEL 141 MMOL/L (136-145); TOTAL PROTEIN 7.1 G/DL (5.7-8.2); TRIGLYCERIDES LEVEL 138 MG/DL (<150)
== END ==
LOC: M PLALAB 08:29
PROVIDERS: ATTEND Internal Medicine Hematology
DX: E78.2 Mixed hyperlipidemia (principal); Z79.899 Other long term (current) drug therapy

== ENCOUNTER → 2024-02-29 | Outpatient (CLI) | payer MEDICARE, OTHER | LOC: M PLALAB 09:09 | PROVIDERS: ATTEND Urology | DX: R97.20 Elevated prostate specific antigen [PSA] (principal) ==

== ENCOUNTER → 2024-10-17 | Outpatient (CLI) | payer MEDICARE, OTHER ==
[~2024-10-17] MED LIST changes: -FLOM0.4C39 PO; +TAMS-18 PO
[2024-10-17 11:26] LABS: ALT/SGPT 46 U/L (7.0-40); AST/SGOT 34 U/L (<34); CALCIUM LEVEL 9.3 MG/DL (8.3-10.6); CARBON DIOXIDE LEVEL 25 MMOL/L (20-31); CHLORIDE LEVEL 106 MMOL/L (98-107); CHOLESTEROL LEVEL 150 MG/DL (<200); CHOLESTEROL RISK RATIO 3.14 (<5); CREATININE FOR GFR 0.82 MG/DL (0.70-1.30); GLOMERULAR FILTRATION RATE > 90.0 (>49); LDL CHOLESTEROL 80.9 MG/DL (<100); NON-HDL-C 102.3 MG/DL; POTASSIUM SERUM 4.4 MMOL/L (3.5-5.1); SODIUM LEVEL 143 MMOL/L (136-145); TRIGLYCERIDES LEVEL 107 MG/DL (<150)
== END ==
LOC: M PLALAB 08:47
PROVIDERS: ATTEND Physician Assistant
DX: I10 Essential (primary) hypertension (principal); E78.00 Pure hypercholesterolemia, unspecified

== ENCOUNTER → 2024-12-30 | Outpatient (REF) | payer MEDICARE, OTHER ==
[~2024-12-30] MED LIST changes: -EZET10TA21 PO; +EZET10TA57 PO
[2024-12-30 14:29] LABS: ESTIMATED AVERAGE GLUCOSE 120.0 MG/DL (60-110)
[2024-12-30 14:32] LABS: ALT/SGPT 50 U/L (7.0-40); AST/SGOT 35 U/L (<34); CALCIUM LEVEL 9.3 MG/DL (8.3-10.6); CARBON DIOXIDE LEVEL 27 MMOL/L (20-31); CHLORIDE LEVEL 106 MMOL/L (98-107); CHOLESTEROL LEVEL 164 MG/DL (<200); CHOLESTEROL RISK RATIO 3.61 (<5); CREATININE FOR GFR 0.84 MG/DL (0.70-1.30); GLOMERULAR FILTRATION RATE > 90.0 (>49); LDL CHOLESTEROL 74.0 MG/DL (<100); NON-HDL-C 118.6 MG/DL; POTASSIUM SERUM 4.2 MMOL/L (3.5-5.1); SODIUM LEVEL 142 MMOL/L (136-145); TRIGLYCERIDES LEVEL 223 MG/DL (<150)
[2024-12-30 15:04] LABS: HEPATITIS C VIRUS ABY INDEX < 0.02 INDEX (<0.8)
== END ==
LOC: M SFHCPLAZ 11:23
PROVIDERS: ATTEND Family Medicine
DX: E78.2 Mixed hyperlipidemia (principal); R79.89 Other specified abnormal findings of blood chemistry; R73.03 Prediabetes

== ENCOUNTER → 2025-02-22 | Outpatient (CLI) | payer MEDICARE, OTHER ==
[2025-02-23 14:15] LABS: PSA % FREE 18.0 % (calc) (>25); PSA FREE 1.6 ng/mL; PSA TOTAL 8.9 ng/mL (< OR = 4.0)
== END ==
LOC: M PLALAB 10:29
PROVIDERS: ATTEND Urology
DX: R97.20 Elevated prostate specific antigen [PSA] (principal)